=== PATIENT | male | born 2000 | race Hispanic/Latino ===

== ENCOUNTER 2024-09-04 08:57 | Day surgery (SDC) | payer BC ==
[~2024-09-04] VITALS: Ht 193 cm; Wt 181.4 kg
[2024-09-04] VITALS (10 sets, daily range): BP systolic 119–151; BP diastolic 57–85; PULSE 71–110; RESP 15–19; TEMP 97.4–97.6
[2024-09-04] MEDS: 0.9%NACL 1000ML 1,000 ML IV ONE (09:48)
[2024-09-04] MEDS ORDERED: proPOFol 10 MG/ML 20ML VIAL IV ONE ×2 (10:53→11:06)
[2024-09-04] MEDS ORDERED: LIDOCAINE PF 100MG/5ML (2%) SYRINGE 5ML ONE (11:00)
[2024-09-04] MEDS ORDERED: MIDAZOLAM HCL 1 MG/ML 2ML VIAL ONE (11:07)
== END 2024-09-04 12:20 | disposition home or self-care (01) ==
LOC: ENDO 08:57 → DAH 08:57 → ENDO 12:20
PROVIDERS: ATTEND Internal Medicine Gastroenterology
DX: K52.9 Noninfective gastroenteritis and colitis, unspecified (principal); D12.8 Benign neoplasm of rectum; K29.50 Unspecified chronic gastritis without bleeding; R14.0 Abdominal distension (gaseous); R10.13 Epigastric pain; R14.2 Eructation; K62.89 Other specified diseases of anus and rectum; F41.9 Anxiety disorder, unspecified; F32.A Depression, unspecified; E66.01 Morbid (severe) obesity due to excess calories; K92.1 Melena; Z79.899 Other long term (current) drug therapy
CPT/HCPCS: 45380; 45385; 43239; 00813; J7030; J2003; J2250; J2704 ×2; A4620; A4215 ×2; A4223; A4222; A4221; A4663; J3490